=== PATIENT | female | born 1990 | race Caucasian/White ===

== ENCOUNTER 2017-01-21 22:02 | Emergency (ER) | payer SELFPAY ==
[~2017-01-21] VITALS: Ht 160 cm; Wt 47.0 kg
[~2017-01-21 22:02] MED LIST: MOTRIN600 MG PO; ULTRAM50 MG PO
[2017-01-21 22:46] LABS: HEMATOCRIT 43.9 % (36.0-46.0); MCH 30.4 PG (29.0-34.0); MCHC 34.4 G/DL (30.0-36.0); MCV 88.5 FL (83-99); PLATELET COUNT 300 K/uL (156-360); RBC DIS.WIDTH-SD 35.6 % (39-53); RED BLOOD COUNT 4.96 M/uL (3.80-5.20)
[2017-01-21 23:01] LABS: CHLORIDE 106 mEq/L (99-109); POTASSIUM 3.6 mEq/L (3.7-5.4); SODIUM 142 mEq/L (136-147)
[2017-01-21 23:02] LABS: GLUCOSE 86 mg/dL (70-99)
[2017-01-21 23:04] LABS: ANION GAP 11 MEQ/L (2-14)
[2017-01-21 23:06] LABS: GFR ESTIMATE (CALCULATED) > 59 mL/min/; SERUM ETHYL ALCOHOL < 10 mg/dL
[2017-01-21 23:07] LABS: UREA NITROGEN (BUN) 11 mg/dL (9-23)
[2017-01-22 00:16] LABS: AMPHETAMINE NEGATIVE (500 ng/mL); BARBITURATES NEGATIVE (200 ng/mL); BENZODIAZEPINES NEGATIVE (150 ng/mL); COCAINE NEGATIVE (150 ng/mL); INTERNAL CONTROLS VALID? YES; METHADONE NEGATIVE (200 ng/mL); METHAMPHETAMINE NEGATIVE (500 ng/mL); OPIATES (MORPHINE) PRESUMPTIVE POSITIVE (100 ng/mL); OXYCODONE PRESUMPTIVE POSITIVE (100 ng/mL); PHENCYCLIDINE NEGATIVE (25 ng/mL); PROPOXYPHENE NEGATIVE (300 ng/mL); THC CANNABINOIDS PRESUMPTIVE POSITIVE (50 ng/mL); TRICYCLIC ANTIDEPRESSANTS NEGATIVE (300 ng/mL)
[2017-01-22 00:17] LABS: ADD MEDTOX COMMENT Y
[2017-01-22] MEDS ORDERED: ZOFRAN ODT4 MG PO (02:21)
[2017-01-22] MEDS ORDERED: BENTYL10 MG PO (02:21)
[2017-01-22 02:27] VITALS: BP 128/94
== END 2017-01-22 02:31 | disposition home or self-care (01) ==
LOC: EME 22:02
DX: F11.23 Opioid dependence with withdrawal (principal); F11.10 Opioid abuse, uncomplicated
CPT/HCPCS: 80048; 84999; 85027; 99281; 99284; G0480

== ENCOUNTER 2017-10-11 18:05 | Emergency (ER) | payer OTHER ==
[~2017-10-11] VITALS: Ht 160 cm; Wt 65.1 kg
[~2017-10-11 18:05] MED LIST changes: +BENTYL10 MG PO; +ZOFRAN ODT4 MG PO
[2017-10-11 19:07] LABS: HEMATOCRIT 40.1 % (36.0-46.0); HEMOGLOBIN 14.1 G/DL (11.9-15.5); MCH 31.3 PG (29.0-34.0); MCHC 35.2 G/DL (30.0-36.0); MCV 89.1 FL (83-99); PLATELET COUNT 282 K/uL (156-360); RBC DIS.WIDTH-CV 11.4 % (11.8-14.6); RBC DIS.WIDTH-SD 36.7 % (39-53); WHITE BLOOD COUNT 8.5 K/uL (4.1-10.2)
[2017-10-11 19:46] LABS: APPEARANCE SL.HAZY ((CLEAR)); BILIRUBIN NEGATIVE; BLOOD NEGATIVE; COLOR YELLOW ((YELLOW)); GLUCOSE (STRIP) NEGATIVE; KETONES 5; LEUKOCYTES NEGATIVE; NITRITE NEGATIVE; PROTEIN (STRIP) 30; SPECIFIC GRAVITY 1.028 (1.000-1.030); UROBILINOGEN 0.2 MG/DL (0.2-1.0)
[2017-10-11 19:53] LABS: QUANTITATIVE HCG 27600.2 MIU/ML
[2017-10-11 19:55] LABS: ALBUMIN 4.7 g/dL (3.2-4.8)
[2017-10-11 19:56] LABS: CHLORIDE 105 mEq/L (99-109); POTASSIUM 4.1 mEq/L (3.7-5.4); SODIUM 137 mEq/L (136-147)
[2017-10-11 19:58] LABS: GLUCOSE 111 mg/dL (70-99); TOTAL PROTEIN 7.7 g/dL (6.4-8.3)
[2017-10-11 20:00] LABS: TOTAL BILIRUBIN 0.5 mg/dL (0.0-1.0)
[2017-10-11 20:01] LABS: ALKALINE PHOSPHATASE 56 IU/L (3-129)
[2017-10-11 20:02] LABS: CREATININE 0.8 mg/dL (0.6-1.3); GFR ESTIMATE (CALCULATED) > 59 mL/min/
[2017-10-11 20:03] LABS: AST (GOT) 21 IU/L (2-34); UREA NITROGEN (BUN) 11 mg/dL (9-23)
[2017-10-11 20:05] LABS: ALT (GPT) 19 IU/L (3-49)
[2017-10-11 20:07] LABS: BACTERIA 1+ /HPF; EPITHELIAL CELLS 2+ /HPF; MUCUS 4+ /LPF; RED BLOOD CELLS NONE SEEN /HPF (0-5); UCUL ADDED? NO; WHITE BLOOD CELLS 0-5 /HPF (0-5)
[2017-10-11] MEDS ORDERED: ZOFRAN ODT4 MG PO (21:59)
[2017-10-11 22:18] VITALS: BP 119/75
== END 2017-10-11 22:19 | disposition home or self-care (01) ==
LOC: EME 18:05
DX: O20.0 Threatened abortion (principal); O99.89 Other specified diseases and conditions complicating pregnancy, childbirth and the puerperium; R11.10 Vomiting, unspecified; O99.281 Endocrine, nutritional and metabolic diseases complicating pregnancy, first trimester; E86.0 Dehydration; O99.331 Smoking (tobacco) complicating pregnancy, first trimester; F17.200 Nicotine dependence, unspecified, uncomplicated; Z3A.01 Less than 8 weeks gestation of pregnancy
CPT/HCPCS: 76801; 80053; 81003; 84702; 85027; 99281; 99285; J2405; J7030